=== PATIENT | female | born 1950 | race Caucasian/White ===

== ENCOUNTER 2024-05-24 11:30 | Emergency (ER) | payer OTHER ==
[~2024-05-24] VITALS: Ht 160 cm; Wt 66.0 kg
[2024-05-24 11:37] VITALS: O2SAT 100
[2024-05-24] MEDS: ACETAMINOPHEN 325MG TABLET PO ONE (16:04)
[2024-05-24] MEDS: HYDROCODONE/ACETAMINOPHEN 5/325MG TABLET PO ONE (17:58)
[2024-05-24] MEDS: LIDOCAINE HCL 1% 20ML VIAL INFIL ONE (17:59)
[2024-05-24 19:29] VITALS: BP 100/50; PULSE 52; RESP 15; TEMP 36.89184; O2SAT 100
== END 2024-05-24 20:27 | disposition home or self-care (01) ==
LOC: ER 11:30
DX: S62.102A Fracture of unspecified carpal bone, left wrist, initial encounter for closed fracture (principal); W18.39XA Other fall on same level, initial encounter; Y93.89 Activity, other specified; Y92.89 Other specified places as the place of occurrence of the external cause; Y99.8 Other external cause status
CPT/HCPCS: 99284; 24650; 73110; 73130; 73562; J3490